=== PATIENT | male | born 1985 | race Caucasian/White ===

== ENCOUNTER 2019-08-28 20:26 | Emergency (ER) | payer OTHER ==
[~2019-08-28] VITALS: Ht 162.6 cm; Wt 77.1 kg
[2019-08-28] MEDS ORDERED: CLINDAMYCIN HC300 MG PO (21:11)
== END 2019-08-28 21:21 | disposition home or self-care (01) ==
LOC: ED 20:26
DX: K04.7 Periapical abscess without sinus (principal); Z88.0 Allergy status to penicillin; Z88.5 Allergy status to narcotic agent
CPT/HCPCS: 99283

== ENCOUNTER 2021-02-16 13:02 | Emergency (ER) | payer OTHER ==
[~2021-02-16] VITALS: Ht 162.6 cm; Wt 79.9 kg
[~2021-02-16 13:02] MED LIST: CLINDAMYCIN HC300 MG PO
[2021-02-16] MEDS ORDERED: PERCOCET 7.5-31 EACH PO (13:35)
[2021-02-16] MEDS ORDERED: CLEOCIN HCL300 MG PO (13:35)
== END 2021-02-16 14:00 | disposition home or self-care (01) ==
LOC: ED 13:02
DX: K02.9 Dental caries, unspecified (principal); Z88.5 Allergy status to narcotic agent; Z88.0 Allergy status to penicillin
CPT/HCPCS: 99282; A9270